=== PATIENT | male | born 1935 | race Caucasian/White ===

== ENCOUNTER 2017-01-20 07:31 | Day surgery (SDC) | payer MEDICARE, BC ==
[2017-01-20] MEDS: Bupivacaine 0.5%/EPINEPHrine 1:200,000 50 ML MDV ONE ×2 (07:14→10:25)
[2017-01-20] MEDS: Lidocaine 1% 50 ML MDV ONE ×2 (07:14→10:25)
[2017-01-20] MEDS ORDERED: ceFAZolin 2 GM in Sodium Chloride 0.9% 50 ML IV ONE (08:15)
[2017-01-20] MEDS ORDERED: Sodium Chloride 0.9% 1,000 ML IV SCH (08:15)
[2017-01-20] MEDS ORDERED: Ondansetron 4 MG/2 ML SDV ONE (08:18)
[2017-01-20] MEDS ORDERED: Dexamethasone 4 MG/ML SDV ONE (08:18)
[2017-01-20] MEDS ORDERED: fentaNYL 250 MCG/5 ML SDV ONE (08:18)
[2017-01-20] MEDS ORDERED: Rocuronium 50 MG/5 ML Vial ONE (08:18)
[2017-01-20] MEDS ORDERED: Neostigmine Methylsulfate 1 MG/ML 5 ML Syringe ONE (08:18)
[2017-01-20] MEDS ORDERED: Propofol 200 MG/20 ML SDV ONE (08:18)
[2017-01-20] MEDS ORDERED: metroNIDAZOLE/Normal Saline 500 MG in Premix Bag 1 BAG IV ONE (08:45)
[2017-01-20] MEDS ORDERED: Ketorolac 60 MG/2 ML SDV ONE (10:29)
[2017-01-20] MEDS ORDERED: fentaNYL 100 MCG/2 ML SDV IVPUSH ONE (10:59)
[2017-01-20] MEDS ORDERED: hydrOXYzine HCl 50 MG/ML SDV IM ONE (11:09)
[2017-01-20 13:03] VITALS: BP 109/60
[2017-01-20] MEDS ORDERED: Acetaminophen/HYDROcodone 325-5 MG Tab PO PRN (13:08)
--- NOTE | 2017-01-28 07:52 | OR ---
DATE OF PROCEDURE: 01/20/2017 PROCEDURE: Laparoscopic repair of ventral hernias, multiple, incarcerated, non- strangulated. COMPLICATIONS: None. COMMUNITY RELATIONS LIAISON: None. PREOPERATIVE DIAGNOSIS: Ventral hernia. POSTOPERATIVE DIAGNOSIS: Ventral hernia. RISKS: Risks, benefits, alternatives, and limitations including, but not limited to, infection, bleeding, and perforation were explained to the patient and wished to proceed. PROCEDURE IN DETAIL: The patient was placed in supine position. The right abdomen was entered using a Veress needle. A drop test was performed without abnormality and the abdomen was subsequently insufflated. This was followed by an Optiview trocar and two 5-mm ports. The patient was noted to have a "[place] cheese" hernia type setup with small hernias approximately 3 of them and clustered in the midline. These showed incarceration, but no strangulation and the contents were subsequently reduced. Minimal bleeding was controlled by electrocautery. The bowel was not interacted with. A 15-cm mesh proximally was introduced and tacked into place with multiple tacking sutures. The balloon was subsequently moved and the air was removed. The wounds were closed with 3-0 Vicryl and 4-0 Vicryl in an interrupted running fashion. Dermabond was applied. The patient tolerated the procedure well. Gorge Hua MD /[id number]
== END 2017-01-20 15:01 | disposition home or self-care (01) ==
LOC: JP.SDS 07:31
PROVIDERS: ATTEND Surgery
DX: K43.6 Other and unspecified ventral hernia with obstruction, without gangrene (principal); G47.33 Obstructive sleep apnea (adult) (pediatric); E78.00 Pure hypercholesterolemia, unspecified; K21.9 Gastro-esophageal reflux disease without esophagitis; Z88.0 Allergy status to penicillin
CPT/HCPCS: 49653; A9270; C1781; J0690; J1100; J1885; J2405; J2704; J3010; J3410; J7040; J7050

== ENCOUNTER 2017-05-15 05:26 | Day surgery (SDC) | payer MEDICARE, BC ==
[2017-05-15] MEDS ORDERED: Bupivacaine 0.5%/EPINEPHrine 1:200,000 50 ML MDV ONE (06:37)
[2017-05-15] MEDS: Dextrose 5%-Lactated Ringers 1,000 ML IV SCH ×4 (06:55→21:19)
[2017-05-15] MEDS ORDERED: Meropenem 500 MG SDV ONE (06:58)
[2017-05-15] MEDS ORDERED: Albuterol/Ipratropium 3.0-0.5 MG/3 ML Neb Soln NEB ONE (07:04)
[2017-05-15] MEDS ORDERED: HYDROmorphone/Normal Saline 15 MG/30 ML PCA IV PRN (07:11)
[2017-05-15] MEDS ORDERED: Naloxone 0.4 MG/ML SDV IVPUSH PRN ×2 (07:11→12:00)
[2017-05-15] MEDS ORDERED: Neostigmine Methylsulfate 1 MG/ML 5 ML Syringe ONE (07:12)
[2017-05-15] MEDS ORDERED: Dexamethasone 4 MG/ML SDV ONE (07:12)
[2017-05-15] MEDS ORDERED: Rocuronium 50 MG/5 ML Vial ONE (07:12)
[2017-05-15] MEDS ORDERED: fentaNYL 250 MCG/5 ML SDV ONE (07:12)
[2017-05-15] MEDS ORDERED: Ondansetron 4 MG/2 ML SDV ONE (07:12)
[2017-05-15] MEDS ORDERED: Glycopyrrolate 0.2 MG/ML 5 ML MDV ONE (07:12)
[2017-05-15] MEDS ORDERED: Propofol 200 MG/20 ML SDV ONE (07:12)
[2017-05-15] MEDS ORDERED: ceFAZolin 2 GM in Premix Bag 1 BAG IV ONE (07:15)
[2017-05-15] MEDS ORDERED: fentaNYL 100 MCG/2 ML SDV ONE (08:44)
[2017-05-15] MEDS ORDERED: hydrOXYzine HCl 100 MG/2 ML SDV IM ONE (09:43)
[2017-05-15] MEDS ORDERED: Ondansetron 4 MG/2 ML SDV IVPUSH PRN (11:25)
[2017-05-15] MEDS ORDERED: Cyclobenzaprine 10 MG Tab PO PRN (11:26)
[2017-05-15] MEDS: ceFAZolin 2 GM in Sodium Chloride 0.9% 50 ML IV SCH ×2 (14:20→21:18)
[2017-05-15] MEDS: Lisinopril 20 MG Tab PO SCH (14:20)
[2017-05-15] MEDS: Famotidine 20 MG Tab PO SCH (14:20)
[2017-05-16] MEDS: Acetaminophen/oxyCODONE 325-5 MG Tab PO PRN ×2 (02:06→08:09)
[2017-05-16] MEDS: Dextrose 5%-Lactated Ringers 1,000 ML IV SCH (05:11)
[2017-05-16] MEDS: ceFAZolin 2 GM in Sodium Chloride 0.9% 50 ML IV SCH (05:13)
[2017-05-16 07:14] VITALS: BP 124/71
[2017-05-16] MEDS ORDERED: Warfarin 2.5 MG Tab PO ONE (07:42)
[2017-05-16] MEDS: Lisinopril 20 MG Tab PO SCH (08:13)
[2017-05-16] MEDS: Famotidine 20 MG Tab PO SCH (08:13)
[2017-05-16] MEDS ORDERED: Enoxaparin 100 MG/1 ML Syringe SUBCUT ONE (08:30)
[2017-05-16] MEDS ORDERED: FLU Vacc TS 2017-18 (65yr UP)/PF 180 MCG/0.5 ML Syringe IM ONE (10:00)
[2017-05-16] MEDS ORDERED: Magnesium Hydroxide 400 MG/5 ML Susp 30 ML Cup PO PRN (10:00)
--- NOTE | 2017-05-18 11:57 | DISCH ---
FINAL DIAGNOSES: 1. Recurrent incarcerated incisional hernia. 2. Extensive intraabdominal adhesions. 3. History of hypertension. 4. History of hypercholesterolemia. 5. History of deep vein thrombosis and pulmonary embolism, status post vena cava filter placement. 6. History of cerebrovascular accident. 7. Impaired fasting glucose. 8. Neuropathy involving feet. 9. Degenerative joint disease. 10.Gastroesophageal reflux disease. HOSPITAL COURSE: This is a 81-year-old presenting with recurrent incisional hernia that was repaired previously in January, and he has an obvious recurrence in the central abdomen. After preoperative evaluation and discussion, he wished to proceed with repair of the hernia. This was accomplished on the date of admission and quite a bit in the way of extensive adhesions. Given this, underneath the mesh, some Vicryl mesh was placed to limit recurrent adhesion formation. Postoperatively, he has had no significant problems and will be discharge home. He will be continuing his current medications, other than for the hydrocodone, which will be replaced temporarily by Percocet 5/325, 1 to 2 tablets q.4 hours p.r.n. #50 and also Flexeril 10 mg p.o. t.i.d. p.r.n. muscle spasms, and he will be sent home with 3 doses of milk of magnesia to help with getting his bowels going. The patient will have a somewhat protuberant abdomen long-term, as he has a very thin abdominal wall. The current mesh has a very wide margin around the hernia site, so that should hold at this point, but he will have a fairly protuberant abdomen long-term. The patient's coagulation status was managed by means of partial reversal of his Coumadin, having been off that for 1-1/2 days. This patient received twice the dose of his usual Coumadin yesterday and then will also receive 4 mg instead of 2 mg today, along with 100 mg of Lovenox, and then INR should be therapeutic, and will thereafter continue his usual Coumadin dosing. Follow up with Dr. De Jesus will be in [facility] on 05/27/2017, and he will have the pro time obtained at that time.
--- NOTE | 2017-05-20 15:10 | OR ---
DATE OF PROCEDURE: 05/15/2017 PREOPERATIVE DIAGNOSIS: Recurrent incisional hernia. POSTOPERATIVE DIAGNOSIS: Recurrent incisional hernia with extensive intraabdominal adhesions. OPERATIVE PROCEDURES: Diagnostic laparoscopy with lysis of extensive adhesions: 1. Repair of recurrent incarcerated incisional hernia with mesh (52742). 2. Placement of Vicryl mesh to displace viscera from pelvic and abdominal wall to limit recurrent adhesion formation (71310). ANESTHESIA: General. AUDIT DIRECTOR: Vickie Pereyra PA-C, and AUDREY Grier. INDICATION FOR PROCEDURE: This is a 81-year-old presenting with a recurrence of an incisional hernia that had been repaired earlier this summer per Dr. Hua. This has an obvious central recurrence. Plan is to proceed with a diagnostic laparoscopy, laparotomy if necessary, and repair of the hernia once again. Potential risks of the procedure including bleeding, infection, injury to underlying viscera, problems with the mesh becoming infected or the hernia recurring were all reviewed, and the patient wishes to proceed. DETAILS OF PROCEDURE: The patient was taken to the operating room and placed in a supine position. After general endotracheal anesthesia was induced, a Flynn catheter was inserted, and the abdomen was prepped and draped. In the left mid-abdomen, a transverse incision was made, and the peritoneal cavity entered under direct vision with an Optiview trocar and inflated to 15 mmHg pressure with CO2. Laparoscope was then reinserted. No underlying trocar insertion site injuries were seen. Following this, eventually four additional 5-mm trocars were placed, 2 on the right and 2 on the left side. The patient had quite extensive intraabdominal adhesions, and these were taken down over a period of time with combination of sharp and Harmonic scalpel type dissections. Once these were all taken down, the area was inspected. The patient's mesh from the previous repair was actually more or less in place, but probably has slid toward the midline and occupied hernia sac rather than holding the hernia sac in a more normal location. The patient had an extremely thin abdominal wall, and he certainly will have a protuberant abdomen no matter what is done surgically. A 20.3 cm Ventralex mesh was then selected and then soaked in an antibiotic-containing saline solution. The center of the mesh was then pulled up with the balloon insertion catheter through a small stab wound over the center of the hernia, which was located in the left mid-abdomen. This was quite a bit larger mesh than had been used previously. The balloon was then inflated, and the mesh then carefully affixed with absorbable tacking screws first circumferentially and then another circumferential layer of perhaps 3 cm in from the edge of the mesh and then multiple areas tacked around the hernia as well, helping to keep this mesh in good position and reduce the protuberance through the area of the herniation. Once this was in place, the balloon inflation catheter and the balloon were removed. To minimize recurrent adhesion formation, a 12-inch segment of Vicryl mesh was then placed behind the urinary bladder along the pelvic sidewalls and up along the area of the abdominal wall including the mesh placement location. At that point, no further problems were noted. Trocars were removed. The fascia at the 12-mm camera port was closed with 0 Vicryl stitch, and the skin at each incision with 4-0 Vicryl skin stitch. Dressing was applied. The patient was taken to the recovery room in a satisfactory condition. Physician shop assistant, Vickie Pereyra, played an essential role in assisting in this case, helping to position the patient, retract structures as needed, as well as suturing and cutting sutures when indicated. Her presence improved patient safety and decreased the operative time. Murray De Jesus MD /[id number]
== END 2017-05-16 10:50 | disposition home or self-care (01) ==
LOC: JP.SDS 05:26 → JP.2SS 10:35 → JP.SDS 05-16 10:50
PROVIDERS: ATTEND Surgery
DX: K43.2 Incisional hernia without obstruction or gangrene (principal); K66.0 Peritoneal adhesions (postprocedural) (postinfection); I10 Essential (primary) hypertension; E78.00 Pure hypercholesterolemia, unspecified; K21.0 Gastro-esophageal reflux disease with esophagitis; G47.33 Obstructive sleep apnea (adult) (pediatric); I63.9 Cerebral infarction, unspecified; Z88.0 Allergy status to penicillin; Z79.01 Long term (current) use of anticoagulants; Z79.899 Other long term (current) drug therapy; Z23 Encounter for immunization
CPT/HCPCS: 36415; 44700; 49657; 80053; 83735; 84100; 85025; 85610; 94762; A9270; C1781; G0008; J0690; J1100; J1170; J1650; J2185; J2405; J2704; J2710; J3010; J3410; J7042; J7050; J7620; 90662

== ENCOUNTER 2024-02-16 07:31 | Day surgery (SDC) | payer MEDICARE, BC ==
[~2024-02-16 07:31] MED LIST: Propofol 200 MG/20 ML SDV ONE; fentaNYL 50 MCG/ML SDV ONE
[2024-02-16] MEDS: Sodium Chloride 0.9% 1,000 ML IV SCH (08:19)
[2024-02-16 10:08] VITALS: PULSE 54
[2024-02-16 10:16] VITALS: BP 144/72
== END 2024-02-16 10:50 | disposition home or self-care (01) ==
LOC: JP.SDS 07:31
PROVIDERS: ATTEND Surgery
DX: K21.00 Gastro-esophageal reflux disease with esophagitis, without bleeding (principal); K22.89 Other specified disease of esophagus; R13.10 Dysphagia, unspecified; I10 Essential (primary) hypertension; E11.9 Type 2 diabetes mellitus without complications; Z88.0 Allergy status to penicillin
CPT/HCPCS: 00731; 43239; 88305; 88312; J2704; J3010; J7030